=== PATIENT | male | born 1990 | race Caucasian/White ===

== ENCOUNTER → 2021-05-17 08:04 | Outpatient (CLI) | payer OTHER, SELFPAY ==
--- NOTE | 2021-05-17 | DI.RAD.S_ITS ---
PROCEDURE: FL SHOULDER INJECTION MR/CT RT INDICATIONS: RIGHT ROTATOR CUFF TEAR COMPARISON: [facility], CR, XR SHOULDER 2+ VIEWS RIGHT, 05/06/2021, 11:55. TECHNIQUE: The indications, alternatives, benefits, risks, and complications of the procedure were explained to the patient. Written informed consent was obtained and placed in the chart. The shoulder was examined fluoroscopically and a site for needle placement chosen for entry into the glenohumeral joint from an anterior approach. The skin was prepped and draped in a sterile fashion, and 1% lidocaine infiltrated from skin down to joint capsule. A spinal needle was inserted into the glenohumeral joint, and a small amount of iodinated contrast media injected to confirm intra-articular placement of the needle tip. This was followed by approximately 12 mL dilute solution of a gadolinium containing MR contrast agent. The needle was removed and a dressing was applied. The patient was given postprocedural instructions and sent to the MR suite for MR imaging. FINDINGS: A single fluoroscopic spot image demonstrates intra-articular location of injected iodinated contrast. IMPRESSION: Successful fluoroscopically guided administration of dilute Gadolinium solution into the shoulder joint for MR arthrogram. Dictated by: Ravindra Dorado M.D. on 05/17/2021 at 12:17 Approved by: Ravindra Dorado M.D. on 05/17/2021 at 12:17
--- NOTE | 2021-05-17 | DI.MRI.S_ITS ---
PROCEDURE: MR SHOULDER RT W CON INDICATIONS: RIGHT ROTATOR CUFF TEAR TECHNIQUE: After the administration of 12 mL of dilute intra-articular Gadolinium contrast, oblique coronal T1 and T2 spin echo with fat saturation, oblique sagittal T1 spin echo with and without fat saturation, oblique sagittal T2 fast spin echo with fat saturation, axial T1 spin echo with fat saturation through the shoulder. COMPARISON: [facility], CR, XR SHOULDER 2+ VIEWS RIGHT, 12/27/2020, 19:09. [facility], CR, XR SHOULDER 2+ VIEWS RIGHT, 05/06/2021, 11:55. FINDINGS: Image quality: Excellent. Rotator cuff: The supraspinatus, infraspinatus, and subscapularis tendons appear intact throughout. There is mild thickening and slight increased internal signal in the supraspinatus tendon compatible with mild tendinosis. No rotator cuff muscle atrophy on sagittal images. Bones and bursae: No bone marrow contusions or fractures. No acromioclavicular joint degeneration. The acromion demonstrates conventional anatomy, without an os acromiale. Trace fluid noted in the subacromial/subdeltoid bursa compatible with minimal bursitis. Capsule and soft tissues: The labrum and glenohumeral ligaments appear intact. The long head of the biceps tendon demonstrates normal location and morphology. The rotator interval appears normal, without fibrosis. The coracohumeral ligament is of normal thickness. No intra-articular bodies. IMPRESSION: 1. No evidence of internal derangement. 2. Mild infraspinatus tendinopathy. 3. Minimal subacromial/subdeltoid bursitis. Dictated by: Magaly Coffman MD, PhD on 05/17/2021 at 9:20 Approved by: Magaly Coffman MD, PhD on 05/20/2021 at 11:59
== END ==
PROVIDERS: PCP Student in an Organized Health Care Education/Training Program; Referring Provider Orthopaedic Surgery; Visit Provider Orthopaedic Surgery
DX: M25.511 Pain in right shoulder (principal)
CPT/HCPCS: 23350; 73222; 77002

== ENCOUNTER 2023-05-21 09:16 | Emergency (ER) | payer OTHER, SELFPAY ==
[2023-05-21] VITALS (10 sets, daily range): BP systolic 120–141; BP diastolic 67–96; PULSE 62–77; RESP 14–21; TEMP 36.8; O2SAT 97–98; BMI 30.4
--- NOTE | 2023-05-21 09:24 | DI.RAD.S_ITS ---
PROCEDURE: XR CHEST 1V INDICATIONS: chest pain TECHNIQUE: One view of the chest was acquired. COMPARISON: None. FINDINGS: Surgical changes and devices: None. Lungs and pleura: Lungs are clear. No pleural effusions or pneumothorax. Mediastinum: Mediastinal contours appear normal. Heart size is normal. Bones and chest wall: No suspicious bony lesions. Overlying soft tissues appear unremarkable. IMPRESSION: No acute cardiopulmonary abnormality is seen. Dictated by: Jazzy Rosenberg M.D. on 05/21/2023 at 9:56 Approved by: Jazzy Rosenberg M.D. on 05/21/2023 at 9:57
[2023-05-21] MEDS: ASPIRIN 81 MG CHEW TAB 324 MG PO (09:33)
[2023-05-21 09:56] LABS: Prothrombin Time 11.9 SECONDS (9.4-12.5)
[2023-05-21 09:57] LABS: Add Manual Diff / Slide Review NO; Basophils Absolute Auto 0 /uL (0-100); Basophils Percent Auto 0.5 % (0-2); Eosinophils Absolute Auto 100 /uL (0-450); Hematocrit 45.4 % (41-53); Hemoglobin 15.8 g/dL (13.5-17.5); Lymphocytes Absolute Auto 2100 /uL (1100-4500); Mean Corpuscular HGB Conc 34.8 % (30-36); Mean Corpuscular Hemoglobin 28.3 PG (26-34); Mean Corpuscular Volume 81.2 fL (80-100); Monocytes Absolute Auto 500 /uL (0-900); Monocytes Percent Auto 9.4 % (3-14); Neutrophils Absolute Auto 3000 /uL (1500-7000); Neutrophils Percent Auto 51.1 % (50-75); Platelet Count 166 X10^3/uL (150-400); Red Cell Distribution Width 13.2 % (11.6-14.8); White Blood Cell Count 5.8 X10^3/uL (4.5-11.0)
[2023-05-21 09:58] LABS: PTT Partial Thromboplastin Tim 34 SECONDS (25.1-36.5)
[2023-05-21 10:03] LABS: Alanine Aminotransferase 44 IU/L (<50); Albumin 4.3 g/dL (3.5-5.0); Albumin Globulin Ratio 1.2 (1.0-2.8); Alkaline Phosphatase 80 U/L (38-126); Aspartate Aminotransferase 30 IU/L (17-59); BUN Creatinine Ratio 16.1 (6-22); Bilirubin Total 0.7 mg/dL (0.2-1.3); Blood Urea Nitrogen 14 mg/dL (9-20); Calcium 9.4 mg/dL (8.4-10.2); Carbon Dioxide 29 mmol/L (22-32); Chloride 106 mmol/L (98-107); Creatine Kinase 88 U/L (55-170); Estimated Glomerular Filt Rate > 60 mL/min (>60); Globulin 3.5 g/dL (1.7-4.1); Glucose 94 mg/dL (70-100); HEMOLYSIS < 15 (0-50); Lipase 83 U/L (23-300); Magnesium 2.2 mg/dL (1.6-2.3); Potassium 3.7 mmol/L (3.4-5.1); Sodium 139 mmol/L (137-145); Total Protein 7.8 g/dL (6.3-8.2)
[2023-05-21 10:12] LABS: Troponin I < 0.012 ng/mL (0.01-0.034)
[2023-05-21 11:58] LABS: Troponin I < 0.012 ng/mL (0.01-0.034)
--- NOTE | 2023-05-29 07:51 | ED.CHESTPAIN ---
HPI - Chest Pain General Chief Complaint: Chest Pain Stated Complaint: Chest Pain Time Seen by Provider: 05/21/23 09:51 Source: patient and EMS Mode of arrival: EMS Limitations: no limitations History of Present Illness HPI narrative: 28-year-old man who arrives by EMS. History is obtained from the patient and EMS. He reports a sudden onset of chest pain and shortness of breath while attending a meeting this morning. Also felt anxious. No history of anxiety disorder, no history of hypertension nonsmoker diabetic no elevated cholesterol. Chest pain is resolved when seen. Was feeling well previous to this. 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 Not having suicidal or homicidal ideation not hallucinating. No alcohol or recreational drug use Related Data Home Medications Medication Instructions Recorded Confirmed No Known Home Medications 05/21/23 05/21/23 Allergies Allergy/AdvReac Type Severity Reaction Status Date / Time No Known Drug Allergies Allergy Verified 05/21/23 09:29 Patient History Social History Smoking Status: Never smoker Smoking Status: Never smoker alcohol intake frequency: 0-2 drinks per day Substance Use Type: does not use Exam Narrative Exam Narrative: Alert, no acute distress HEENT: Normocephalic, atraumaitic moist mucus membranes Neck: Supple no midline tenderness Lungs: Clear to ascultaion, no respiratory distress Heart: Regular rhythm and rate no murmur Abdomen: Normal bowel sounds, soft and nontender Extremeties: Full range of motion no deformity Neuro: Alert and oriented, normal speech moves x4 Initial Vital Signs Initial Vital Signs: Vital Signs Pulse Rate 76 05/21/23 09:22 Respiratory Rate 20 05/21/23 09:22 Pulse Oximetry 98 05/21/23 09:22 Course Orders Ordered: Discontinued Medications Aspirin (Aspirin 81 Mg Chew Tab) 324 mg PO NOW ONE Stop: 05/21/23 09:25 Last Admin: 05/21/23 09:33 Dose: 324 mg Documented By: REINA MDM - Chest Pain Lab Data Lab results narrative: CBC with differential unremarkable, CMP is unremarkable, troponins normal x2 05/21/23 09:28 05/21/23 09:28 Labs: Lab Results 05/21/23 05/21/23 Range/Units 09:28 11:28 WBC 5.8 (4.5-11.0) X10^3/uL RBC 5.60 (4.5-5.9) X10^6/uL Hgb 15.8 (13.5-17.5) g/dL Hct 45.4 (41-53) % MCV 81.2 (80-100) fL MCH 28.3 (26-34) PG MCHC 34.8 (30-36) % RDW 13.2 (11.6-14.8) % Plt Count 166 (150-400) X10^3/uL Neut % (Auto) 51.1 (50-75) % Lymph % (Auto) 37.0 (25-40) % [place] % (Auto) 9.4 (3-14) % Eos % (Auto) 2.0 (2-4) % Baso % (Auto) 0.5 (0-2) % Neut # (Auto) 3000 (4649-1401) /uL Lymph # (Auto) 2100 (1850-8709) /uL [place] # (Auto) 500 (0-900) /uL Eos # (Auto) 100 (0-450) /uL Baso # (Auto) 0 (0-100) /uL PT 11.9 (9.4-12.5) SECONDS INR 1.0 (0.9-1.3) APTT 34 (25.1-36.5) SECONDS Sodium 139 (137-145) mmol/L Potassium 3.7 (3.4-5.1) mmol/L Chloride 106 (98-107) mmol/L Carbon Dioxide 29 (22-32) mmol/L BUN 14 (9-20) mg/dL Creatinine 0.87 (0.66-1.25) mg/dL Estimated GFR > 60 (>60) mL/min BUN/Creatinine Ratio 16.1 (6-22) Glucose 94 (70-100) mg/dL Calcium 9.4 (8.4-10.2) mg/dL Magnesium 2.2 (1.6-2.3) mg/dL Total Bilirubin 0.7 (0.2-1.3) mg/dL AST 30 (17-59) IU/L ALT 44 (<50) IU/L Alkaline Phosphatase 80 (38-126) U/L Total Creatine Kinase 88 (55-170) U/L Troponin I < 0.012 < 0.012 (0.01-0.034) ng/mL Total Protein 7.8 (6.3-8.2) g/dL Albumin 4.3 (3.5-5.0) g/dL Globulin 3.5 (1.7-4.1) g/dL Albumin/Globulin Ratio 1.2 (1.0-2.8) Lipase 83 (23-300) U/L Imaging Data Chest x-ray: My Impression: No acute findings Radiologist's Impression: Per Radiology report, no acute findings ECG Data Interpretation: Normal sinus rhythm, normal rate, no previous infarction no acute ST segment change MDM Narrative Medical decision making narrative: 33-year-old male with chest pain or shortness of breath associated with anxiety. Low risk from the standpoint of cardiac risk factors, pulmonary embolism not suggest a by presentation, this seems most likely to be associated with anxiety related to situational stressors. Patient is in agreement and will be following up with [facility] for assistance with this Discharge Plan Departure Patient Disposition: Home Clinical Impression: Anxiety Chest pain Qualifiers: Chest pain type: other chest pain Qualified Code(s): R07.89 - Other chest pain Activity Restrictions/Additional Instructions: Emergency department workup today is reassuring. No serious medical issues are identified. I think it is safe for you to go home. As we discussed, I think there is a component of anxiety and I recommend that you seek assistance for this with the [facility]. Recheck in the emergency department for suicidal ideation, severe anxiety or severe chest pain. Prescriptions: No Action No Known Home Medications Referrals: Tiago De La Torre [Primary Care Provider] - Stand Alone Forms: Patient Portal/API
== END 2023-05-21 13:01 | disposition home or self-care (01) ==
PROVIDERS: Emergency Provider Emergency Medicine; PCP Student in an Organized Health Care Education/Training Program
DX: F41.9 Anxiety disorder, unspecified (principal); R07.89 Other chest pain
CPT/HCPCS: 36415; 71045; 80053; 82550; 83690; 83735; 84484; 85025; 85610; 85730; 93005; 99284